=== PATIENT | female | born 1995 | race Caucasian/White ===

== ENCOUNTER 2018-11-06 21:56 | Outpatient (CLI) | payer BC, MEDICAID ==
--- NOTE | 2018-11-07 15:12 | Ultrasound Report ---
Reason: TEST POSITIVE Procedure Date: 11/06/2018 Accession Number: [id number] / [id number] Procedure: US - OB First Trimester CPT Code: FULL RESULT: EXAM: FIRST TRIMESTER OBSTETRIC ULTRASOUND (Less than 11 weeks) EXAM DATE: 11/06/2018 11:18 PM. CLINICAL HISTORY: test positive. LMP: 09/19/2018. COMPARISONS: None. TECHNIQUE: Transabdominal and transvaginal ultrasound examination with static image documentation. CLINICAL DATES: EGA 6 weeks 6 days with SPRING 06/26/2019 based on last menstrual period. ASSESSMENT: Gestational Sac: Single intrauterine. Mean gestational sac diameter: 18.9 mm = 6 weeks 2 days. Embryo: CRL (crown-rump length) 10.6 mm = 7 weeks 1 day. Cardiac activity: 148 beats per minute. Yolk sac: 2.3 mm. Amniotic fluid: Not accurately assessed at this gestational age. Early placenta: Not visible at this gestational age. Other: No perigestational fluid collection demonstrated. MATERNAL STRUCTURES: Uterus: Anteverted. Unremarkable. Cervix: Closed. Right Ovary/Adnexa: The ovary measures 2.8 x 2.0 x 1.9 cm, volume 5.5 cc. Unremarkable. Left Ovary/Adnexa: The ovary measures 5.5 x 3.1 x 3.1 cm, volume 27.6 cc. Several anechoic simple cysts noted, largest measures 3.7 x 1.9 x 2.5 cm. Free Fluid: Trace. Other: None. IMPRESSION: 1. Single viable intrauterine at EGA 7 weeks 1 day with SPRING 06/24/2019 based on crown-rump length, which is concordant with clinical dates/last menstrual period. 2. Assigned dating is SPRING 06/26/2019 based on reported LMP. VANDANA
== END 2018-11-06 21:57 | disposition home or self-care (01) ==
LOC: DI 21:56
PROVIDERS: ATTEND Nurse Practitioner Obstetrics & Gynecology
DX: Z32.01 Encounter for pregnancy test, result positive (principal)
CPT/HCPCS: 76801; 76817

== ENCOUNTER 2018-12-05 09:34 | Outpatient (CLI) | payer BC, MEDICAID ==
[2018-12-05 17:44] LABS: MUDS CUTOFF CONCENTRATIONS CUTOFF CONC BELOW:
[2018-12-05 19:14] LABS: AMPHETAMINE SCREEN,URINE NEGATIVE (NEGATIVE); BENZODIAZEPINES SCREEN, URINE NEGATIVE (NEGATIVE); COCAINE SCREEN URINE NEGATIVE (NEGATIVE); METHADONE SCREEN, URINE NEGATIVE (NEGATIVE); METHAMPHETAMINES SCREEN, URINE NEGATIVE (NEGATIVE); OPIATE SCREEN, URINE NEGATIVE (NEGATIVE); OXYCODONE SCREEN, URINE NEGATIVE (NEGATIVE); PROPOXYPHENE SCREEN, URINE NEGATIVE (NEGATIVE); TRICYCLIC ANTIDEPRESSANT,URINE NEGATIVE (NEGATIVE)
== END 2018-12-05 23:59 | disposition home or self-care (01) ==
LOC: LAB.R 09:34
PROVIDERS: ATTEND Nurse Practitioner Obstetrics & Gynecology
DX: Z36.9 Encounter for antenatal screening, unspecified (principal); Z11.3 Encounter for screening for infections with a predominantly sexual mode of transmission
CPT/HCPCS: 80306; 87491; 87591

== ENCOUNTER 2019-01-10 15:07 | Outpatient (CLI) | payer BC, MEDICAID ==
--- NOTE | 2019-01-11 13:57 | Ultrasound Report ---
Reason: HX OF LABOR THIRD TRIMESTER WITH D Procedure Date: 01/10/2019 Accession Number: [id number] / [id number] Procedure: US - OB Limited CPT Code: FULL RESULT: EXAM: LIMITED OBSTETRICAL ULTRASOUND EXAM DATE: 01/10/2019 03:40 PM. CLINICAL HISTORY: History of labor third trimester, evaluate cervix. COMPARISON: 11/06/2018. TECHNIQUE: Real-time sonographic evaluation of the fetus performed by the property controller. Multiple district sales representative static images were saved for review. Additional transvaginal imaging to more accurately evaluate cervical length/placental position/etc. DATING: Established EGA 16 weeks 1 day with SPRING 06/26/2019 based on LMP. GENERAL EVALUATION Arana . Cardiac activity: 159 bpm. movement: Visualized. Presentation: Breech, variable position. Placenta: Anterior left lateral position. Low lying placenta 1.4 cm from the internal os noted on transvaginal imaging. Amniotic fluid: Subjectively normal. MVP 4.7 cm. MATERNAL STRUCTURES Cervix: Long and closed measuring 4.1 cm. IMPRESSION: 1. Arana live intrauterine with gestational age 16 weeks 1 day based on LMP. 2. Low lying placenta 1.4 cm from internal os. Attention on follow-up recommended. 3. Cervix long and closed measuring 4.1 cm. RADIA
== END 2019-01-10 15:08 | disposition home or self-care (01) ==
LOC: DI 15:07
PROVIDERS: ATTEND Nurse Practitioner Obstetrics & Gynecology
DX: O09.212 Supervision of pregnancy with history of pre-term labor, second trimester (principal); Z3A.16 16 weeks gestation of pregnancy
CPT/HCPCS: 76815

== ENCOUNTER 2019-01-24 15:21 | Outpatient (CLI) | payer BC, MEDICAID ==
--- NOTE | 2019-01-26 11:27 | Ultrasound Report ---
Reason: HX OF LABOR THIRD TRIMESTER WITH D Procedure Date: 01/24/2019 Accession Number: [id number] / [id number] Procedure: US - OB Limited CPT Code: FULL RESULT: EXAM: LIMITED OBSTETRICAL ULTRASOUND EXAM DATE: 01/24/2019 03:34 PM. CLINICAL HISTORY: HX OF LABOR THIRD TRIMESTER WITH D. COMPARISON: 01/10/2019 and 11/06/2018. TECHNIQUE: Real-time sonographic evaluation of the fetus performed by the city assessor. Multiple artist's representative static images were saved for review. Additional transvaginal imaging to more accurately evaluate cervical length/placental position/etc. DATING: Established EGA 18 weeks 1 day with SPRING 06/26/2019. GENERAL EVALUATION Arana . Cardiac activity: 151 bpm. movement: Present. Presentation: Transverse. Placenta: Anterior position. Previously seen low lying placenta not demonstrated on today's ultrasound. Amniotic fluid: Subjectively normal MVP 1.3 cm. ANATOMY Not assessed today. MATERNAL STRUCTURES Cervix long and closed 4.3 cm. IMPRESSION: 1. Arana live intrauterine with gestational age 18 weeks 1 day based on established SPRING. 2. Cervix long and closed 4.3 cm. RADIA
== END 2019-01-24 15:22 | disposition home or self-care (01) ==
LOC: DI 15:21
PROVIDERS: ATTEND Nurse Practitioner Obstetrics & Gynecology
DX: O60.14X0 Preterm labor third trimester with preterm delivery third trimester, not applicable or unspecified (principal)
CPT/HCPCS: 76815

== ENCOUNTER 2019-02-07 15:07 | Outpatient (CLI) | payer BC, MEDICAID ==
--- NOTE | 2019-02-08 23:44 | Ultrasound Report ---
Reason: HX OF LABOR THIRD TRIMESTER WITH D Procedure Date: 02/07/2019 Accession Number: [id number] / [id number] Procedure: US - OB Limited CPT Code: FULL RESULT: EXAM: LIMITED OBSTETRICAL ULTRASOUND WITH TRANSVAGINAL EXAM DATE: 02/07/2019 03:42 PM. CLINICAL HISTORY: History of labor with delivery. Serial cervical length assessments. COMPARISON: OB LIMITED 01/24/2019 3:33 PM OB LIMITED 01/10/2019 3:16 PM. TECHNIQUE: Real-time sonographic evaluation of the fetus performed by the concierge receptionist. Multiple mechanical service representative static images were saved for review. Transvaginal imaging performed to more accurately evaluate cervical length. DATING: Established EGA 20 weeks 1 day with SPRING 06/26/2019. GENERAL EVALUATION Arana . Cardiac activity: 148 bpm. Presentation: Vertex. Placenta: Anterior fundal position. Amniotic fluid: Normal. VINCENT 13.1 cm. MVP 5.6 cm. MATERNAL STRUCTURES Cervix: Long and closed. Transvaginal length 4.0 cm. IMPRESSION: 1. Arana live intrauterine with gestational age 20 weeks 1 day based on established SPRING. 2. The cervix is long and closed. RADIA
== END 2019-02-07 15:08 | disposition home or self-care (01) ==
LOC: DI 15:07
PROVIDERS: ATTEND Nurse Practitioner Obstetrics & Gynecology
DX: O09.212 Supervision of pregnancy with history of pre-term labor, second trimester (principal); Z3A.20 20 weeks gestation of pregnancy
CPT/HCPCS: 76815

== ENCOUNTER 2019-02-17 13:06 | Outpatient (CLI) | payer BC, MEDICAID ==
--- NOTE | 2019-02-17 15:21 | Ultrasound Report ---
Reason: SUPERVISION HIGH RISK ,SECOND TRIMESTER Procedure Date: 02/17/2019 Accession Number: [id number] / [id number] Procedure: US - OB Detailed Eval CPT Code: FULL RESULT: EXAM: COMPLETE OBSTETRICAL ULTRASOUND EXAM DATE: 02/17/2019 02:25 PM. CLINICAL HISTORY: anatomic survey. COMPARISON: OB LIMITED 02/07/2019 3:20 PM. TECHNIQUE: Real-time sonographic evaluation of the fetus performed by the foundry melt supervisor. Multiple tax compliance representative static images were saved for review. DATING: Established EGA 21 weeks 4 days with SPRING 06/26/2019 based on LMP. EGA 22 weeks 4 days with SPRING 06/19/2019 based on the current ultrasound. GENERAL EVALUATION Arana . Cardiac activity: 148 bpm. movement: Visualized. Presentation: Vertex. Placenta: Anterior position. No evidence for previa. Umbilical cord: 3 vessel cord. Central placental cord origin. Amniotic fluid: Subjectively normal. MVP 5 cm. BIOMETRY Bi-Parietal Diameter (BPD): 5.6 cm, 23 weeks 1 day Head Circumference (HC): 20.2 cm, 22 weeks 3 days Abdominal Circumference (AC): 17.2 cm, 22 weeks 1 day Femur Length (FL): 3.9 cm, 22 weeks 4 days Estimated Weight: 497 grams, 82nd percentile for 21 weeks 4 days. ANATOMY The intracranial structures, profile, face/nose/lips, spine, 4 chamber heart and outflow tracts, stomach, abdominal wall and cord insertion, diaphragm, kidneys, bladder, and extremities were visualized and demonstrate no abnormality. MATERNAL STRUCTURES Uterus: Unremarkable. Cervix: Long and closed. Transabdominal length 4.0 cm. Right ovary/adnexa: Unremarkable. Left ovary/adnexa: Unremarkable. Free fluid: None. IMPRESSION: 1. Arana live intrauterine with gestational age 21 weeks 4 days based on LMP. 2. Estimated weight is within expected limits for assigned dating. 3. Normal anatomic survey. No anatomic abnormalities are detected at this time. RADIA
== END 2019-02-17 13:07 | disposition home or self-care (01) ==
LOC: DI 13:06
PROVIDERS: ATTEND Obstetrics & Gynecology
DX: O09.92 Supervision of high risk pregnancy, unspecified, second trimester (principal); Z3A.21 21 weeks gestation of pregnancy
CPT/HCPCS: 76811

== ENCOUNTER 2019-03-07 14:59 | Outpatient (CLI) | payer BC, MEDICAID ==
--- NOTE | 2019-03-07 18:02 | Ultrasound Report ---
Reason: HX OF LABOR THIRD TRIMESTER WITH PERTERM D Procedure Date: 03/07/2019 Accession Number: [id number] / [id number] Procedure: US - OB Limited CPT Code: FULL RESULT: EXAM: LIMITED OBSTETRICAL ULTRASOUND EXAM DATE: 03/07/2019 03:24 PM. CLINICAL HISTORY: HX OF LABOR THIRD TRIMESTER WITH PERTERM D. COMPARISON: OB LIMITED 02/07/2019 3:20 PM OB DETAILED EVAL 02/17/2019 1:08 PM. TECHNIQUE: Real-time sonographic evaluation of the fetus performed by the in home tutor. Multiple volunteer patient representative static images were saved for review. Additional transvaginal imaging to more accurately evaluate cervical length/placental position/etc. DATING: Established EGA 24 weeks 1 day with SPRING 06/26/2019. GENERAL EVALUATION Arana . Cardiac activity: 158 bpm. movement: Visualized. Presentation: Cephalic. Placenta: Anterior position. Amniotic fluid: Normal. VINCENT 16.1 cm. MVP 6.6 cm. ANATOMY Full anatomic survey performed on the prior exam. MATERNAL STRUCTURES The cervix is long and closed measuring 4.0 cm in length on transvaginal imaging (previously 4.0 cm in length). IMPRESSION: 1. Arana live intrauterine with gestational age 24 weeks 1 day based on established SPRING. 2. Closed cervix measuring 4.0 cm in length, as before. 3. Normal amniotic fluid index. RADIA
== END 2019-03-07 15:00 | disposition home or self-care (01) ==
LOC: DI 14:59
PROVIDERS: ATTEND Nurse Practitioner Obstetrics & Gynecology
DX: O09.213 Supervision of pregnancy with history of pre-term labor, third trimester (principal); Z3A.24 24 weeks gestation of pregnancy
CPT/HCPCS: 76815; 76817

== ENCOUNTER 2019-03-21 15:01 | Outpatient (CLI) | payer BC, MEDICAID ==
--- NOTE | 2019-03-21 16:42 | Ultrasound Report ---
Reason: HX OF LABOR THIRD TRIMESTER WITH D Procedure Date: 03/21/2019 Accession Number: [id number] / [id number] Procedure: US - OB Limited CPT Code: FULL RESULT: EXAM: LIMITED OBSTETRICAL ULTRASOUND WITH TRANSVAGINAL EXAM DATE: 03/21/2019 03:53 PM. CLINICAL HISTORY: History of labor in third trimester with delivery. Assess cervical length every other week until 32 weeks. COMPARISON: OB LIMITED 03/07/2019 3:24 PM OB DETAILED EVAL 02/17/2019 1:08 PM. TECHNIQUE: Real-time sonographic evaluation of the fetus performed by the websphere commerce architect. Multiple field service representative static images were saved for review. Additional transvaginal imaging to more accurately evaluate cervical length. DATING: Established EGA 26 weeks 1 day with SPRING 06/26/2019. GENERAL EVALUATION Arana . Cardiac activity: 155 bpm. movement: Visualized. Presentation: Vertex. Placenta: Anterior position. No evidence for previa. Amniotic fluid: Normal. VINCENT 19.4 cm. MVP 7.3 cm. MATERNAL STRUCTURES Cervix: Long and closed, transvaginal length 4.0 cm. IMPRESSION: 1. Arana live intrauterine in cephalic presentation with gestational age 26 weeks 1 day based on established SPRING. 2. Normal amniotic fluid volume. 3. The cervix is long and closed. RADIA
== END 2019-03-21 15:02 | disposition home or self-care (01) ==
LOC: DI 15:01
PROVIDERS: ATTEND Nurse Practitioner Obstetrics & Gynecology
DX: O09.212 Supervision of pregnancy with history of pre-term labor, second trimester (principal); Z3A.26 26 weeks gestation of pregnancy
CPT/HCPCS: 76815; 76817

== ENCOUNTER 2019-04-02 11:03 | Outpatient (CLI) | payer BC, MEDICAID | END 2019-04-02 11:15 | disposition home or self-care (01) | LOC: WFO 11:03 → FBP 11:05 → WFO 11:15 | PROVIDERS: ATTEND Obstetrics & Gynecology | DX: Z53.9 Procedure and treatment not carried out, unspecified reason (principal) ==

== ENCOUNTER 2019-04-04 15:08 | Outpatient (CLI) | payer BC, MEDICAID ==
--- NOTE | 2019-04-06 08:42 | Ultrasound Report ---
Reason: HX OF LABOR THIRD TRIMESTER WITH D Procedure Date: 04/04/2019 Accession Number: [id number] / [id number] Procedure: US - OB Limited CPT Code: FULL RESULT: EXAM: LIMITED OBSTETRICAL ULTRASOUND EXAM DATE: 04/04/2019 03:27 PM. CLINICAL HISTORY: History of labor third trimester with delivery. Cervical length assessment. COMPARISON: OB LIMITED 03/21/2019 3:09 PM. TECHNIQUE: Real-time sonographic evaluation of the fetus performed by the official greeter. Multiple sales representative door to door static images were saved for review. Additional transvaginal imaging to more accurately evaluate cervical length/placental position/etc. DATING: Established EGA 28 weeks 1 day with SPRING 06/26/2019. GENERAL EVALUATION Arana . Cardiac activity: 131 bpm. movement: Visualized. Presentation: Vertex Placenta: Anterior position. Amniotic fluid: Normal. VINCENT 19 cm. MVP 6.3 cm. MATERNAL STRUCTURES Cervical length is 4.0 cm with a long and closed cervix transvaginally. IMPRESSION: 1. Arana live intrauterine with gestational age 28 weeks 1 day based on working due date. 2. Cervix is long and closed, 4 cm length. RADIA
== END 2019-04-04 15:09 | disposition home or self-care (01) ==
LOC: DI 15:08
PROVIDERS: ATTEND Nurse Practitioner Obstetrics & Gynecology
DX: O60.14X0 Preterm labor third trimester with preterm delivery third trimester, not applicable or unspecified (principal); Z3A.28 28 weeks gestation of pregnancy
CPT/HCPCS: 76815; 76817

== ENCOUNTER 2019-04-10 13:48 | Outpatient (CLI) | payer BC, MEDICAID | END 2019-04-10 13:49 | disposition home or self-care (01) | LOC: LAB 13:48 | PROVIDERS: ATTEND Obstetrics & Gynecology | DX: O09.92 Supervision of high risk pregnancy, unspecified, second trimester (principal); Z36.0 Encounter for antenatal screening for chromosomal anomalies; Z36.89 Encounter for other specified antenatal screening ==

== ENCOUNTER 2019-04-17 09:31 | Outpatient (CLI) | payer BC, MEDICAID ==
[2019-04-17 10:42] LABS: BASOPHILS % (AUTO) 0.4 %; EOSINOPHILS # (AUTO) 0.2 10^3/uL (0.0-0.7); EOSINOPHILS % (AUTO) 2.2 %; HGB - HEMOGLOBIN 11.7 g/dL (12.0-16.0); LYMPHOCYTES # (AUTO) 1.5 10^3/uL (1.5-3.5); LYMPHOCYTES % (AUTO) 15.3 %; MEAN CORPUSCULAR HEMOGLOBIN 31.7 pg (27.0-31.0); MEAN CORPUSCULAR HGB CONC 33.8 g/dL (32.0-36.0); MEAN CORPUSCULAR VOLUME 93.8 fL (81.0-99.0); MONOCYTES # (AUTO) 0.6 10^3/uL (0.0-1.0); NEUTROPHILS # (AUTO) 7.3 10^3/uL (1.5-6.6); NEUTROPHILS % (AUTO) 74.3 %; PLT - PLATELET COUNT 212 10^3/uL (130-450); RED BLOOD COUNT 3.69 10^6/uL (4.20-5.40); RED CELL DISTRIBUTION WIDTH 12.7 % (12.0-15.0); WHITE BLOOD COUNT 9.9 x10^3/uL (4.8-10.8)
== END 2019-04-17 09:32 | disposition home or self-care (01) ==
LOC: LAB 09:31
PROVIDERS: ATTEND Obstetrics & Gynecology
DX: O09.92 Supervision of high risk pregnancy, unspecified, second trimester (principal); Z36.0 Encounter for antenatal screening for chromosomal anomalies; Z36.89 Encounter for other specified antenatal screening
CPT/HCPCS: 36415; 82950; 85025; 86850

== ENCOUNTER 2019-04-18 15:05 | Outpatient (CLI) | payer BC, MEDICAID ==
--- NOTE | 2019-04-20 09:04 | Ultrasound Report ---
Reason: HX OF LABOR THIR TRIMESTER WITH DE Procedure Date: 04/18/2019 Accession Number: [id number] / [id number] Procedure: US - OB Limited CPT Code: FULL RESULT: EXAM: LIMITED OBSTETRICAL ULTRASOUND EXAM DATE: 04/18/2019 03:44 PM. CLINICAL HISTORY: History of labor third trimester with delivery. Serial cervical measurements every other week. COMPARISON: OB LIMITED 04/04/2019 3:26 PM. TECHNIQUE: Real-time sonographic evaluation of the fetus performed by the manager beauty. Multiple home office representative static images were saved for review. Additional transvaginal imaging to more accurately evaluate cervical length/placental position/etc. DATING: Established EGA 30 weeks 1 day with SPRING 06/26/2019. GENERAL EVALUATION Arana . Cardiac activity: 157 bpm. movement: Visualized. Presentation: Cephalic. Placenta: Anterior position. Amniotic fluid: Normal. VINCENT 18.1 cm. MVP 7.7 cm. MATERNAL STRUCTURES The maternal cervix is evaluated by transabdominal and transvaginal technique. Transvaginally the cervix is long and closed with a length of 4 cm as remeasured by the radiologist on image 28. IMPRESSION: 1. Arana live intrauterine with gestational age 30 weeks 1 day based on established SPRING. 2. Cervical length of 4 cm, long and closed. RADIA
== END 2019-04-18 15:06 | disposition home or self-care (01) ==
LOC: DI 15:05
PROVIDERS: ATTEND Nurse Practitioner Obstetrics & Gynecology
DX: O60.14X0 Preterm labor third trimester with preterm delivery third trimester, not applicable or unspecified (principal); Z3A.30 30 weeks gestation of pregnancy
CPT/HCPCS: 76815; 76817

== ENCOUNTER 2019-05-30 11:07 | Outpatient (CLI) | payer BC, MEDICAID ==
[2019-05-30 11:25] VITALS: BP 107/69
[2019-05-30 12:33] LABS: RUPTURE OF MEMBRANES PLUS NEGATIVE (NEGATIVE)
--- NOTE | 2019-05-30 13:29 | PROVIDER PROGRESS NOTE ---
- HPI Chief Complaint: Other (Shahnaz is a 24-year-old at 36 and 1 weeks estimated gestational age with history of delivery at 34 weeks here for rule out rupture of membranes. Shahnaz reports that this morning she woke up with small passage of fluid in her clothing/bedding. No further loss of fluid. No contractions. Endorses movement. Denies vaginal bleeding or contractions.) Current : Current EDU 06/26/19 Gestation 36 Weeks and 1 Days 2 Para 1 Vital Signs Temperature 97.7 F 05/30/19 11:22 Heart Rate 84 05/30/19 11:22 Respiratory Rate 16 05/30/19 11:22 Blood Pressure 107/69 05/30/19 11:22 O2 Saturation 100 05/30/19 11:22 Temperature 97.7 F 05/30/19 11:22 Heart Rate 84 05/30/19 11:22 Respiratory Rate 16 05/30/19 11:22 Blood Pressure 107/69 05/30/19 11:22 O2 Saturation 100 05/30/19 11:22 - Exam General no apparent distress CV: Regular rate Respiratory: Normal effort Abdomen: Gravid, soft nontender CUSTOM GARMENT DESIGNER: Inspection of vulva reveals no vesicles/ areas of tenderness or irritation suggestive of HSV. No active loss of fluid. EFM: 135 moderate variability 15 x 15 accelerations no decelerations [place]: Quiet/mild irritability ROM plus: Negative Nitrazine negative [place] negative Pooling negative - Procedures NST Procedure: EFM 135 moderate variability 15 x 15 accelerations no decelerations [place]: Quiet/irritable Category 1 tracing Service Date of procedure: 05/30/19 - Plan Plan: 24-year-old at 36 weeks and 1 day estimated gestational age with history of delivery; no evidence of SROM today. Rule out ROM: Reviewed findings. Patient was reassured. well-being: Category 1 tracing. Discussed the risks and benefits of betamethasone for risk of late delivery. Given clinical presentation today and the late gestational age, BMZ was not administered ID: -History of HSV Has initiated prophylaxis with valacyclovir Denies signs and symptoms r indications of prodromal outbreak Clinical exam negative for presence of outbreak -GBS collected Warning signs reviewed. Discharge to home Return to clinic for scheduled follow-up later this week.
== END 2019-05-30 13:00 | disposition home or self-care (01) ==
LOC: WFO 11:07 → FBP 11:10 → WFO 13:00
PROVIDERS: ATTEND Obstetrics & Gynecology
DX: O98.513 Other viral diseases complicating pregnancy, third trimester (principal); Z3A.36 36 weeks gestation of pregnancy
CPT/HCPCS: 84112; 87797; 99213

== ENCOUNTER 2019-06-11 01:35 | Inpatient (IN) | payer BC, MEDICAID ==
[2019-06-11] MEDS ORDERED: SODIUM CHLORIDE FLUSH 0.9% 10 ML SYRINGE IVP PRN ×2 (01:55→03:51)
[2019-06-11] MEDS ORDERED: LACTATED RINGERS 1,000 ML IV SCH ×3 (02:00→04:00)
[2019-06-11 02:25] LABS: BASOPHILS % (AUTO) 0.4 %; EOSINOPHILS # (AUTO) 0.1 10^3/uL (0.0-0.7); EOSINOPHILS % (AUTO) 1.3 %; HGB - HEMOGLOBIN 11.8 g/dL (12.0-16.0); LYMPHOCYTES # (AUTO) 1.8 10^3/uL (1.5-3.5); LYMPHOCYTES % (AUTO) 18.8 %; MEAN CORPUSCULAR HEMOGLOBIN 30.2 pg (27.0-31.0); MEAN CORPUSCULAR VOLUME 91.6 fL (81.0-99.0); MEAN PLATELET VOLUME 10.1 fL (7.9-10.8); MONOCYTES # (AUTO) 0.8 10^3/uL (0.0-1.0); NEUTROPHILS # (AUTO) 6.8 10^3/uL (1.5-6.6); NEUTROPHILS % (AUTO) 70.1 %; PLT - PLATELET COUNT 210 10^3/uL (130-450); RED BLOOD COUNT 3.91 10^6/uL (4.20-5.40); RED CELL DISTRIBUTION WIDTH 14.1 % (12.0-15.0); WHITE BLOOD COUNT 9.7 x10^3/uL (4.8-10.8)
[2019-06-11] MEDS ORDERED: LIDOCAINE-MPF 1% 30 ML VIAL ONE (02:30)
[2019-06-11] MEDS: OXYTOCIN/DEXTROSE 5 % 30 UNIT/500 ML BAG IV PRN ×2 (03:10→05:15)
[2019-06-11] MEDS ORDERED: CARBOPROST TROMETHAMINE 250 MCG/ML AMP IM PRN (03:51)
[2019-06-11] MEDS ORDERED: oxyCODONE 5 MG TABLET PO PRN (03:51)
[2019-06-11] MEDS ORDERED: ACETAMINOPHEN 500 MG TABLET PO PRN (03:51)
[2019-06-11] MEDS ORDERED: diphenhydrAMINE 25 MG CAPSULE PO PRN (03:51)
[2019-06-11] MEDS ORDERED: METHYLERGONOVINE 0.2 MG/ML AMP IM PRN (03:51)
[2019-06-11] MEDS ORDERED: METOCLOPRAMIDE 10 MG/2 ML VIAL IVP PRN (03:51)
[2019-06-11] MEDS ORDERED: OXYTOCIN/DEXTROSE 5 % 30 UNIT/500 ML BAG IV PRN ×2 (03:51)
[2019-06-11] MEDS ORDERED: ONDANSETRON 4 MG/2 ML VIAL IVP PRN (03:51)
[2019-06-11] MEDS ORDERED: HYDROCORTISONE 1% CREAM 28 GM TUBE PR PRN (03:51)
[2019-06-11] MEDS ORDERED: WITCH HAZEL/GLYCERIN 1 PAD TOP PRN (03:51)
--- NOTE | 2019-06-11 04:06 | HISTORY & PHYSICAL EXAMINATION ---
Admit History - : 2 Parity: 1 Care: positive: [facility] Risk/History: positive: Genital herpes, Other (History of delivery in prior ) Complications This : positive: None Smoking Status: Never smoker - Mother's Labs Mother's Blood Type: positive: O Mother's RH: positive: Positive GBS: positive: Group B Step Negative Rubella Status: positive: Immune (Shahnaz is a 24-year-old at 37 weeks 6 days estimated gestational age with an SPRING 06/26/2019 here in labor. has been complicated by history of delivery at 34 weeks. She has received 17 OHP through the course of her . On valacyclovir for history of genital HSV with no prodromal symptoms or overt symptoms. Noted increasing painful contractions starting around 11:00 this evening. Presented with an anterior cervical lip.No loss of fluid. No vaginal bleeding. Endorses movement.Vertex confirmed in clinic today via bedside ultrasound.) Meds/Allgy - Allergies Allergies/Adverse Reactions: Allergies Allergy/AdvReac Type Severity Reaction Status Date / Time No Known Drug Allergies Allergy Verified 06/11/19 02:47 Review of Systems - Other Findings Other Findings: As per HPI otherwise remaining systems are negative. Physical - Abdominal Exam Vital Signs: See [facility] record. Blood pressure is within normal range. Afebrile.. Contraction Frequency (min/apart): Every 2 minutes Contraction Intensity: positive: Moderate to strong Uterine Resting Tone: positive: Soft - Monitoring Heart Rate Baseline: 130 moderate variability plus accelerations no decelerations Strip Review: positive: Category I - Presentation Presentation: positive: Vertex - Vaginal Exam Membranes: positive: Membranes intact Dilation (in cm): Anterior lip Effacement (%): Complete Station: positive: -2 - Speculum Exam Speculum Exam Performed: positive: No - Other Notes Labor Progress Note/Additional Text: Patient presented at 37 weeks 6 days estimated gestational age with cervical exam showing Anterior lip/complete/-2 station. Membranes intact. Plan for Labor - Plan For Labor Plan for Labor: 24-year-old at 37 weeks 6 days presents in active labor. Labor: -Expectant management -Possibility of AROM to advance labor course -Consider augmentation with Pitocin, likely not indicated given advanced cervical dilation at presentation. well-being: -Vertex -GBS negative -On prophylaxis for HSV. Physical exam shows no signs of active outbreak -Category 1 tracing -Well grown Pain: -Desires epidural. Labor advancing too quickly for placement. -Nitrous oxide available per patient request -Cervical dilation to advanced for IV fentanyl Anticipate Inpatient care
--- NOTE | 2019-06-11 04:19 | DELIVERY NOTE ---
Delivery Note - Labor Labor: positive: Spontaneous, Augmented by ARM - Infant Delivery Method Delivery Method: positive: Spontaneous vaginal delivery - Presentation Presentation: positive: ROT - right occiput transverse - Nuchal Cord Nuchal Cord: positive: None - Anesthetic Anesthetic Type: - Amniotic Fluid Description Amniotic Fluid Description: positive: [place] tinged - Episiotomy Type Episiotomy Type: positive: None - Laceration Laceration: positive: 1st degree, Perineal - Delivery Outcome Delivery Outcome: positive: Livebirth - Jakin Jakin: positive: Placed in direct skin contact with mother, Suctioned, Bulb syringe, Stimulated, Warmed, [place] used sex: positive: Female - Cord Cord: positive: 3 vessels - Placenta Placenta: positive: Intact, Expressed - Estimated Blood Loss Estimated Blood Loss (in cc): 100 - Post Delivery Events Post Delivery Events: positive: No post delivery events - Delivery Comments (Free Text/Narrative) Delivery Comments (Free Text/Narrative): Stage I: Patient is a 24-year-old G2, P1 who presents at 37 weeks and 6 days estimated gestational age in labor. Initial SVE was anterior lip/complete/-2 station. Membranes were intact. GBS negative; antibiotics were not indicated. History of HSV on valacyclovir; no prodromal symptoms and no active lesions on exam. Nitrous oxide for pain management. Artificial rupture of membranes notable for passage of clear fluid at 2:20 AM. Category 1 tracing throughout stage I. Complete at 2:27 AM Stage II: Patient pushed well for 40 minutes to deliver a viable female infant with Apgars of 9 and 9 and weight 367 5 g at 3:07 AM presented in R OT position with left shoulder anterior. No nuchal cord was present. Infant was delivered to mother's abdomen. Cord clamping was delayed until umbilical pulsations had ceased. Cord was clamped x2 and cut. Stage III: Placenta delivered at 3:12 AM with manual expression and gentle downward traction on the umbilical cord. It was examined and found to be intact. Examination of the perineum showed a small first-degree laceration of the perineum at the introitus at 4:00. It was hemostatic and did not require repair. EBL was 100. Delivery was well-tolerated and without complication.
[2019-06-11] MEDS: IBUPROFEN 600 MG TABLET PO PRN ×3 (05:32→18:19)
[2019-06-11] MEDS: ACETAMINOPHEN 325 MG TABLET PO SCH ×3 (05:33→18:19)
[2019-06-11] MEDS ORDERED: SODIUM CHLORIDE FLUSH 0.9% 10 ML SYRINGE IVP SCH ×2 (09:00)
[2019-06-11] MEDS: DOCUSATE SODIUM 100 MG CAPSULE PO SCH (10:04)
[2019-06-12] MEDS: IBUPROFEN 600 MG TABLET PO PRN ×2 (03:08→09:31)
[2019-06-12] MEDS: DOCUSATE SODIUM 100 MG CAPSULE PO SCH ×2 (04:09→09:31)
[2019-06-12] MEDS ORDERED: HEPATITIS B VACCINE (PED) 10 MCG/0.5 ML SYRINGE IM ONE (08:32)
[2019-06-12] MEDS ORDERED: CABERGOLINE 0.5 MG TABLET PO ONE (09:53)
[2019-06-12 12:36] VITALS: BP 111/67
--- NOTE | 2019-06-12 13:45 | Labor Flowsheet ---
Labor Flowsheet Datetime Report Generated by CPN: 06/12/2019 13:44 Datetime: 06/12/2019 12:34 VITAL SIGNS NBP Sys/Hyun/Mean (mmHg): 111 : 67 : 77 Pulse: 70 COMMUNICATION LaborFlag: Labor Datetime: 06/11/2019 16:30 SpO2 (%): 99 Datetime: 06/11/2019 03:35 Membranes Ruptured Date/Time: 06/11/2019 02:20 Datetime: 06/11/2019 03:05 ASSESSMENT A Monitor Mode: External US FHR Baseline Rate : 130 Variability: Moderate 6-25 bpm Accelerations: 15X15 Decelerations: Variable Category: Category II Comments: Variables with pushing Datetime: 06/11/2019 02:52 UTERINE ACTIVITY Monitor Mode: External Frequency (min): 2 Quality: Strong Duration (sec): 60 Contraction Comments: Pt pushing FHR Baseline Changes: No Baseline Change Pushing Position: Pushing with Contractions Pushing Progress: Descent with Pushing Datetime: 06/11/2019 02:45 Resting Tone (Palpate): Relaxed Datetime: 06/11/2019 02:29 Pattern: Normal: <= 5 Contractions in 10 Minutes Oxygen Method: Room Air Datetime: 06/11/2019 02:26 STAGE 2 Pushing: Coached on Pushing; Urge to Push Datetime: 06/11/2019 02:21 VAGINAL EXAM Dilatation (cm): 10.0 Preparation for Delivery: Setup for Delivery Datetime: 06/11/2019 02:20 Membrane Status: Ruptured Membranes Rupture Method: Artificial Amniotic Fluid Color: Clear Amniotic Fluid Amount: Moderate Amniotic Fluid Odor: Normal Datetime: 06/11/2019 02:13 MEDICATIONS Medication Comments: Nitrous on Datetime: 06/11/2019 02:03 PAIN Pain Presence: Intermittent Pain Type: Cramping Pain Location: Abdomen Pain Relief Measures: Comfort Measures Pain Coping: Breathing Through Contractions PATIENT CARE IV/Blood Work: IV Started Comfort Measures: Coaching
--- NOTE | 2019-07-15 10:35 | PROVIDER PROGRESS NOTE ---
Subjective - Prog Note Date Prog Note Date: 06/12/19 Prog Note Time: 10:00 - Subjective Pt reports feeling: Improved (S/P doing well.) Objective - Vital Signs/Intake & Output Reviewed Vital Signs: Yes - Objective General Appearance: positive: No acute distress, Alert Abdomen: positive: Non-tender, No organomegaly, Mass (uterus) Back: negative: CVA tenderness (R), CVA tenderness (L) Extremities: negative: Calf tenderness, Alon's sign/cords - Lab Results Fish Bones: 06/11/19 02:15 Assessment/Plan - Problem List (1) (spontaneous vaginal delivery) Impression: PPD #1 progressing well Discussed Breast feeding, RTC one and 3 weeks
--- NOTE | 2019-07-15 10:40 | Discharge Plan ---
Discharge Plan Problem Reviewed?: Yes Disposition: Home, Self Care Condition: Good Diet: Regular Activity Restrictions: Pelvic rest 6 weeks Shower Restrictions: No Weight Bearing: Full Weight No Smoking: If you smoke, Please STOP! Call for help.
== END 2019-06-12 13:15 | disposition home or self-care (01) | DRG 807 ==
LOC: FBP 01:35 → WFO 01:35 → FBP 01:55
PROVIDERS: ADMIT Obstetrics & Gynecology; ATTEND Obstetrics & Gynecology
PROC: 10E0XZZ Delivery of Products of Conception, External Approach (ICD-10-PCS; principal; 2019-06-11)
PROC: 10907ZC Drainage of Amniotic Fluid, Therapeutic from Products of Conception, Via Natural or Artificial Opening (ICD-10-PCS; 2019-06-11)
DX: O98.32 Other infections with a predominantly sexual mode of transmission complicating childbirth (principal); Z37.0 Single live birth; O32.2XX0 Maternal care for transverse and oblique lie, not applicable or unspecified; O70.0 First degree perineal laceration during delivery; Z3A.37 37 weeks gestation of pregnancy; Z87.59 Personal history of other complications of pregnancy, childbirth and the puerperium
CPT/HCPCS: 85025; A9270; J7120; 90744; 99213

== ENCOUNTER 2020-11-23 12:54 | Emergency (ER) | payer BC, MEDICAID ==
--- NOTE | 2020-11-23 13:15 | ED Physician Documentation ---
History of Present Illness - Stated complaint Stated Complaint: "HEART IS FLUTTERING" - Chief complaint Chief Complaint: Cardiac - Additonal information Additional information: 25-year-old female presents the emergency department for evaluation of palpitations. She says that this has been a recurrent concern over the last few months but getting worse in the last week. When she feels the palpitations she feels like she cannot catch her full breath. However she denies chest pain and she denies feeling short of breath. She has no unilateral leg swelling cough or hemoptysis. She does take Tri-Sprintec oral contraceptive. Patient is a non-smoker. No history of hypertension or diabetes. No family history of sudden or early coronary artery disease sudden cardiac . Denies a family history of DVT or pulmonary embolus. On evaluation she appears remarkably well and denies that she has a palpitations in this moment. Review of Systems Constitutional: denies: Fever, Chills Eyes: reports: Reviewed and negative Ears: reports: Reviewed and negative Nose: reports: Reviewed and negative Throat: reports: Reviewed and negative Cardiac: reports: Palpitations. denies: Chest pain / pressure, Pedal edema, Calf pain GI: denies: Abdominal Pain, Nausea, Vomiting, Constipation, Diarrhea : denies: Dysuria, Frequency, Hesitancy Skin: denies: Rash, Lesions Musculoskeletal: denies: Neck pain, Back pain Neurologic: denies: Numbness, Difficulty speaking, Near syncope, Syncope, Seizure, Altered mental status, Unresponsive, Headache, Head injury, LOC Psychiatric: denies: Depressed PD PAST MEDICAL HISTORY - Present Medications Home Medications: Ambulatory Orders Medication Instructions Recorded Confirmed No Known Home Medications 11/23/20 11/23/20 - Allergies Allergies/Adverse Reactions: Allergies Allergy/AdvReac Type Severity Reaction Status Date / Time No Known Drug Allergies Allergy Verified 06/11/19 02:47 - Social History Smoking Status: Never smoker PD ED PE NORMAL - General General: Alert and oriented X 3, No acute distress, Well developed/nourished - HEENT HEENT: Moist mucous membranes - Neck Neck: Supple, no meningeal sign, No adenopathy - Cardiac Cardiac: RRR, No murmur, Strong equal pulses - Respiratory Respiratory: No respiratory distress, Clear bilaterally - Abdomen Abdomen: Normal bowel sounds, Soft, Non tender - Back Back: No CVA TTP - Derm Derm: Normal color, Warm and dry - Extremities Extremities: No deformity, No tenderness to palpate, Normal ROM s pain, No edema, No calf tenderness / cord - Neuro Neuro: Alert and oriented X 3, 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, No motor deficit Eye Opening: To Pain Motor: Obeys Commands Results - Vitals Vitals: Vital Signs - 24 hr 11/23/20 11/23/20 12:57 12:58 Temperature 36.7 C 36.7 C Heart Rate 87 87 Respiratory 19 19 Rate Blood Pressure 117/71 117/71 O2 Saturation 100 100 Oxygen O2 Source Room air - EKG (time done) 1301 Rate: Rate (enter#) (75) Rhythm: NSR [place]: Normal Intervals: Normal PA QRS: Normal Ischemia: Normal ST segments Compare to prior EKG: Old EKG unavailable Computer interpretation: Agree with computer - Labs Labs: Laboratory Tests 11/23/20 11/23/20 11/23/20 13:55 13:55 13:55 WBC RBC Hgb Hct MCV MCH MCHC RDW Plt Count MPV Neut # (Auto) Lymph # (Auto) [place]key # (Auto) Eos # (Auto) Baso # (Auto) Absolute Nucleated RBC Nucleated RBC % D-Dimer Sodium 136 Potassium 4.3 Chloride 102 Carbon Dioxide 22 Anion Gap 12.0 BUN 17 Creatinine 0.8 Estimated GFR (MDRD) 87 L Glucose 82 Calcium 9.9 Magnesium 2.0 Total Bilirubin 1.7 H AST 27 ALT 16 Alkaline Phosphatase 48 Troponin I High Sens < 2.3 L Total Protein 7.4 Albumin 4.0 Globulin 3.4 Albumin/Globulin Ratio 1.2 Lipase 30 TSH 1.99 11/23/20 11/23/20 14:26 14:26 WBC 6.4 RBC 4.37 Hgb 13.3 Hct 40.0 MCV 91.5 MCH 30.4 MCHC 33.3 RDW 12.0 Plt Count 271 MPV 10.7 Neut # (Auto) 4.0 Lymph # (Auto) 1.8 Dickey # (Auto) 0.4 Eos # (Auto) 0.2 Baso # (Auto) 0.0 Absolute Nucleated RBC 0.00 Nucleated RBC % 0.0 D-Dimer 225.7 Sodium Potassium Chloride Carbon Dioxide Anion Gap BUN Creatinine Estimated GFR (MDRD) Glucose Calcium Magnesium Total Bilirubin AST ALT Alkaline Phosphatase Troponin I High Sens Total Protein Albumin Globulin Albumin/Globulin Ratio Lipase TSH - Rads (name of study) CXR Radiology: EMP read indepedently (No acute cardiopulmonary findings) PD MEDICAL DECISION MAKING - ED course Complexity details: reviewed results, re-evaluated patient, considered differential, d/w patient ED course: 25-year-old female presents emergency department for evaluation of intermittent palpitations that she has been feeling with increasing frequency over the last few months. She denies chest pain. She feels sometimes with palpitations she cannot quite catch her full breath. She has had no syncope or lapses in consciousness. No family history of coronary artery disease recent history of surgery. By Wells criteria low risk for PE though she does take Tri-Sprintec. EKG sinus rhythm nonischemic. High-sensitivity troponin and D-dimer are negative as well as are her screening electrolytes and CBC. While here in the emergency department she has showed no ectopic rhythms or premature beats. Cause of her palpitations is not clear however may be related to stress or even excessive caffeine intake. Patient encouraged to follow-up with her primary care doctor. Emergent return precautions were discussed. Departure - Departure Disposition: Home, Self Care Clinical Impression: Palpitations Condition: Stable Record reviewed to determine appropriate education?: Yes Instructions: ED Palpitations Comments: You are seen today in the emergency department for palpitations. This is the sensation often of being aware of your heartbeat. Today your EKG chest x-ray an d labs were all essentially normal. The palpitations may be secondary to some of the stress you are experiencing or even excessive caffeine intake. Encourage you to follow-up this ED visit with your primary care provider. The palpitations become more frequent, cause chest pain or any fainting episodes we need you to return to the emergency department
--- NOTE | 2020-11-23 13:29 | XRAY Report ---
PROCEDURE: Chest 1 View X-Ray INDICATIONS: Chest Pain TECHNIQUE: One view of the chest was acquired. COMPARISON: None. FINDINGS: Surgical changes and devices: None. Lungs and pleura: No pleural effusions or pneumothorax. Lungs are clear. Mediastinum: Mediastinal contours appear normal. Heart size is normal. Bones and chest wall: No suspicious bony lesions. Overlying soft tissues appear unremarkable. IMPRESSION: No acute cardiopulmonary abnormality. Reviewed by: Iker Ta MD on 11/23/2020 1:27 PM [facility] Approved by: Iker Ta MD on 11/23/2020 1:27 PM [facility] Station ID: [id number]
[2020-11-23] MEDS ORDERED: ONDANSETRON 4 MG/2 ML VIAL IVP STA (13:55)
[2020-11-23] MEDS ORDERED: HYDROmorphone 1 MG/ML CARPUJECT IVP STA (13:55)
[2020-11-23 14:29] LABS: BASOPHILS % (AUTO) 0.6 %; EOSINOPHILS # (AUTO) 0.2 10^3/uL (0.0-0.7); EOSINOPHILS % (AUTO) 2.5 %; HGB - HEMOGLOBIN 13.3 g/dL (12.0-16.0); LYMPHOCYTES # (AUTO) 1.8 10^3/uL (1.5-3.5); LYMPHOCYTES % (AUTO) 28.5 %; MEAN CORPUSCULAR HEMOGLOBIN 30.4 pg (27.0-31.0); MEAN CORPUSCULAR HGB CONC 33.3 g/dL (32.0-36.0); MEAN CORPUSCULAR VOLUME 91.5 fL (81.0-99.0); MEAN PLATELET VOLUME 10.7 fL (7.9-10.8); MONOCYTES # (AUTO) 0.4 10^3/uL (0.0-1.0); MONOCYTES % (AUTO) 5.9 %; NEUTROPHILS % (AUTO) 62.3 %; PLT - PLATELET COUNT 271 10^3/uL (130-450); RED BLOOD COUNT 4.37 10^6/uL (4.20-5.40); WHITE BLOOD COUNT 6.4 x10^3/uL (4.8-10.8)
[2020-11-23 14:34] LABS: ALBUMIN/GLOBULIN RATIO 1.2 (1.0-2.2); BILIRUBIN,TOTAL 1.7 mg/dL (0.2-1.0); CALCIUM 9.9 mg/dL (8.5-10.3); CREATININE 0.8 mg/dL (0.4-1.0); TOTAL PROTEIN 7.4 g/dL (6.7-8.2)
[2020-11-23 14:55] VITALS: BP 120/92
== END 2020-11-23 14:57 | disposition home or self-care (01) ==
LOC: ED 12:54
DX: R00.2 Palpitations (principal)
CPT/HCPCS: 36415; 80053; 83690; 83735; 84443; 84484; 85025; 85379; 93005; 99284